=== PATIENT | male | born 1930 | race Hispanic/Latino ===

== ENCOUNTER 2017-07-12 11:13 | Emergency (ER) | payer MEDICARE ==
--- NOTE | 2017-07-12 12:04 | Emergency Department Report ---
Blank Doc - Documentation Documentation: Patient is a 87-year-old male history of congestive heart failure. Patient presented to the ER complaining of cough with whitish sputum for the last few weeks. Patient stated that he has been having runny nose also, he denied any fever nausea or vomiting. Patient denied any chest pain but admits shortness of breath. Possible CHF exacerbation versus pneumonia versus acute bronchitis. Chest x-ray, blood work ordered.
[2017-07-12 12:05] LABS: Basophils # (Auto) 0.1 K/mm3 (0.0-0.1); Basophils % (Auto) 0.6 % (0.0-1.8); Eosinophils # (Auto) 0.2 K/mm3 (0.0-0.4); Eosinophils % (Auto) 2.1 % (0.0-4.3); Hematocrit 37.7 % (35.5-45.6); Hemoglobin 12.4 gm/dl (11.8-15.2); Lymphocytes # (Auto) 3.4 K/mm3 (1.2-5.4); Lymphocytes % (Auto) 33.5 % (13.4-35.0); Mean Corpuscular HGB Conc 33 % (32-34); Mean Corpuscular Hemoglobin 29 pg (28-32); Mean Corpuscular Volume 89 fl (84-94); Monocytes # (Auto) 0.8 K/mm3 (0.0-0.8); Monocytes % (Auto) 7.4 % (0.0-7.3); Platelet Count 209 K/mm3 (140-440); Red Blood Count 4.24 M/mm3 (3.65-5.03); Red Cell Distribution Width 14.4 % (13.2-15.2)
--- NOTE | 2017-07-12 13:41 | Emergency Department Report ---
ED General Adult HPI - General Chief complaint: Upper Respiratory Infection Stated complaint: FLU LIKE SYMPTOMS Time Seen by Provider: 07/12/17 11:53 Source: patient, family Mode of arrival: Ambulatory Limitations: No Limitations - History of Present Illness Initial comments: . Patient is a 87-year-old male history of congestive heart failure. Patient presented to the ER complaining of cough with whitish sputum for the last few weeks. Patient stated that he has been having runny nose also, he denied any fever nausea or vomiting. Patient denied any chest pain but admits shortness of breath. Pain is 0-10. He has a history of congestive heart failure, diabetes, CAD with open heart surgery. No medication taken. Patient says that [facility] for [facility] care and specialty visits. MD Complaint: cough 3 weeks Onset/Timin -: week(s) Severity scale (0 -10): 0 Improves with: none Worsens with: none Associated Symptoms: cough, weakness. denies: confusion, chest pain, diaphoresis, fever/chills, headaches, loss of appetite, malaise, nausea/vomiting , rash, seizure, shortness of breath, syncope Treatments Prior to Arrival: none - Related Data Previous Rx's Medication Instructions Recorded Last Taken Type ALBUTEROL Inhaler [ProAir HFA 2 puff IH QID PRN #1 inhalation 07/12/17 Unknown Rx Inhaler] Benzonatate [Tessalon Perle] 100 mg PO Q8H PRN #12 capsule 07/12/17 Unknown Rx Cetirizine HCl [ZyrTEC] 10 mg PO QDAY 1 Days #7 capsule 07/12/17 Unknown Rx Fluticasone [Flonase] 1 spray NS QDAY 14 Days #1 bottle 07/12/17 Unknown Rx Levofloxacin [Levaquin TAB] 500 mg PO QDAY 7 Days #7 tablet 07/12/17 Unknown Rx Allergies Allergy/AdvReac Type Severity Reaction Status Date / Time No Known Allergies Allergy Unverified 07/12/17 11:16 ED Review of Systems ROS: Stated complaint: FLU LIKE SYMPTOMS Other details as noted in HPI Constitutional: weakness. denies: chills, fever Eyes: denies: eye pain, eye discharge, vision change ENT: denies: ear pain, throat pain Respiratory: cough, wheezing. denies: orthopnea, shortness of breath, SOB with exertion, SOB at rest Cardiovascular: denies: chest pain, palpitations, edema, syncope Gastrointestinal: denies: abdominal pain, nausea, diarrhea Musculoskeletal: denies: back pain, joint swelling, arthralgia Skin: denies: rash, lesions Neurological: weakness. 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 - Medications Home Medications: Home Medications Medication Instructions Recorded Confirmed Last Taken Type ALBUTEROL Inhaler [ProAir HFA 2 puff IH QID PRN #1 inhalation 07/12/17 Unknown Rx Inhaler] Benzonatate [Tessalon Perle] 100 mg PO Q8H PRN #12 capsule 07/12/17 Unknown Rx Cetirizine HCl [ZyrTEC] 10 mg PO QDAY 1 Days #7 capsule 07/12/17 Unknown Rx Fluticasone [Flonase] 1 spray NS QDAY 14 Days #1 bottle 07/12/17 Unknown Rx Levofloxacin [Levaquin TAB] 500 mg PO QDAY 7 Days #7 tablet 07/12/17 Unknown Rx ED Physical Exam - General Limitations: No Limitations General appearance: alert, in no apparent distress - Head Head exam: Present: atraumatic, normal inspection - Eye Eye exam: Present: normal appearance, PERRL, EOMI Pupils: Present: normal accommodation - ENT ENT exam: Present: normal orophraynx, mucous membranes moist, normal external ear exam, other (O nasal mucosa congested with erythema and clear drainage). Absent: TM's normal bilaterally (bilateral TM congested without erythema) - Neck Neck exam: Present: normal inspection, full ROM. Absent: tenderness, lymphadenopathy - Respiratory Respiratory exam: Present: wheezes, rhonchi, other (congested cough). Absent: normal lung sounds bilaterally, respiratory distress, rales, stridor, chest wall tenderness, accessory muscle use, decreased breath sounds, prolonged expiratory - Cardiovascular Cardiovascular Exam: Present: regular rate, normal rhythm, normal heart sounds, other (paced rhythm) - GI/Abdominal GI/Abdominal exam: Present: soft, normal bowel sounds. Absent: tenderness - Extremities Exam Extremities exam: Present: normal inspection, full ROM, tenderness, normal capillary refill, other (no clubbing, cyanosis or edema. Positive pulses all extremities and no neurovascular compromise). Absent: pedal edema, joint swelling, calf tenderness - Back Exam Back exam: Present: normal inspection, full ROM, other (ambulates without any difficulties). Absent: tenderness, CVA tenderness (R), CVA tenderness (L), muscle spasm, paraspinal tenderness, vertebral tenderness, rash noted - Neurological Exam Neurological exam: Present: alert, oriented X3, normal gait - Psychiatric Psychiatric exam: Present: normal affect, normal mood - Skin Skin exam: Present: warm, dry, intact, normal color. Absent: rash ED Course Vital Signs 07/12/17 07/12/17 07/12/17 11:16 14:58 15:34 Temperature 97.8 F Pulse Rate 65 54 L 60 Respiratory 18 16 Rate Blood Pressure 120/63 135/61 Blood Pressure 113/57 [Right] O2 Sat by Pulse 98 98 98 Oximetry - Reevaluation(s) Reevaluation #1: 07/12/17 14:20 Patient started on DuoNeb treatments x 1 and Deltasone 60 mg po. Rocephin 1 g IM. Upon reevaluation, Patient feels better and lung souns better ED Medical Decision Making - Lab Data Result diagrams: 07/12/17 11:34 07/12/17 11:34 Lab Results 07/12/17 07/12/17 07/12/17 Range/Units 11:34 11:34 11:34 WBC 10.2 (4.5-11.0) K/mm3 RBC 4.24 (3.65-5.03) M/mm3 Hgb 12.4 (11.8-15.2) gm/dl Hct 37.7 (35.5-45.6) % MCV 89 (84-94) fl MCH 29 (28-32) pg MCHC 33 (32-34) % RDW 14.4 (13.2-15.2) % Plt Count 209 (140-440) K/mm3 Lymph % (Auto) 33.5 (13.4-35.0) % [place] % (Auto) 7.4 H (0.0-7.3) % Eos % (Auto) 2.1 (0.0-4.3) % Baso % (Auto) 0.6 (0.0-1.8) % Lymph # 3.4 (1.2-5.4) K/mm3 [place] # 0.8 (0.0-0.8) K/mm3 Eos # 0.2 (0.0-0.4) K/mm3 Baso # 0.1 (0.0-0.1) K/mm3 Seg Neutrophils % 56.4 (40.0-70.0) % Seg Neutrophils # 5.8 (1.8-7.7) K/mm3 Sodium 140 (137-145) mmol/L Potassium 4.5 (3.6-5.0) mmol/L Chloride 104.5 (98-107) mmol/L Carbon Dioxide 24 (22-30) mmol/L Anion Gap 16 mmol/L BUN 53 H (9-20) mg/dL Creatinine 2.0 H (0.8-1.5) mg/dL Estimated GFR 32 ml/min BUN/Creatinine Ratio 27 % Glucose 140 H (75-100) mg/dL Calcium 9.0 (8.4-10.2) mg/dL Troponin T < 0.010 (0.00-0.029) ng/mL NT-Pro-B Natriuret Pep 5483 H (0-900) pg/mL - EKG Data -: EKG Interpreted by Me (attending physician) EKG shows normal: sinus rhythm Rate: normal (ventricular paced rhythm at 70 bpm) - EKG Data Interpretation: no acute changes - Radiology Data Radiology results: report reviewed Chest x-ray revealed cardiomegaly, stable pacemaker in no acute cardiopulmonary findings. - Medical Decision Making ED Course 87 yo male here for cough and congestion over the past few weeks and concerned. he goes to [facility] for [facility] This patient was evaluated by myself and stable. Labs: CBC stable,CMP stable with mild elevation in BYN/CR, troponin stable, BNP elevated but stable, ekg, no acute findings,Chest Xray dictated by radiologist and reviewed by myself. Xray findings and laboratory findings communicated to patient and he voiced understanding. Clinical Impression: Upper respiratory infection with cough and congestion-better Bronchitis, acute- Better Chronic CHF (congestive heart failure)- managed by head machine feeder and stable Chronic renal failure- managed by nephrology and stable Patient better after deltasone 60 mg po and duoneb x 1 neb given. he said he felt better Prescription for Albuterol inhaler, Tessalon perles, zyrtec, flonase and levaquin given Patient educated on medications, Multiple f/u at [facility], Multiple diagnosis and he voiced understanding VSS Afeb Discharge home in stable condition with instructions to return to ED if symptoms worsens - Differential Diagnosis PNA, BRONCHITIS, CHF exac, URI Critical care attestation.: If time is entered above; I have spent that time in minutes in the direct care of this critically ill patient, excluding procedure time. ED Disposition Clinical Impression: Cough in adult patient, Upper respiratory infection with cough and congestion, Cardiomegaly Bronchitis, acute Qualifiers: Bronchitis organism: unspecified organism Qualified Code(s): J20.9 - Acute bronchitis, unspecified Chronic CHF (congestive heart failure) Qualifiers: Heart failure type: unspecified Qualified Code(s): I50.9 - Heart failure, unspecified Chronic renal failure Qualifiers: Chronic kidney disease stage: unspecified stage Qualified Code(s): N18.9 - Chronic kidney disease, unspecified Disposition: DC-01 TO HOME OR SELFCARE Is pt being admited?: No Does the pt Need Aspirin: No Condition: Stable Instructions: Heart Failure (ED), Chronic Kidney Disease (ED), Upper Respiratory Infection (ED), Acute Bronchitis (ED) Additional Instructions: Please follow up with your head machine feeder and primary care physician at the [facility]. Take medication as prescribed. If symptoms worsen, return to the emergency room follow-up with nephrology for chronic kidney disease Follow-up with head machine feeder chronic CHF and enlarged heart. Follow up with a primary care doctor at [facility] tomorrow. Prescriptions: ALBUTEROL Inhaler [ProAir HFA Inhaler] 2 puff IH QID PRN #1 inhalation PRN Reason: wheezing and cough Benzonatate [Tessalon Perle] 100 mg PO Q8H PRN #12 capsule PRN Reason: Cough Cetirizine HCl [ZyrTEC] 10 mg PO QDAY 1 Days #7 capsule Fluticasone [Flonase] 1 spray NS QDAY 14 Days #1 bottle Levofloxacin [Levaquin TAB] 500 mg PO QDAY 7 Days #7 tablet Referrals: [facility] [Outside] - 07/13/17 REGINE DIXON MD [Staff Physician] - 07/13/17 JERRY CARROLL MD [Staff Physician] - 2-3 Days PRIMARY CARE, [Primary Care Provider] - 07/13/17
[2017-07-12] MEDS ORDERED: DUONEB *Not for PRN Use IH ONE (13:44)
[2017-07-12] MEDS ORDERED: DELTASONE PO ONE (13:44)
[2017-07-12] MEDS ORDERED: XYLOCAINE 1% MPF 5 mL INFILTRATI ONE (13:48)
[2017-07-12] MEDS ORDERED: ROCEPHIN IM STA (13:48)
[2017-07-12 15:35] VITALS: BP 113/57
--- NOTE | 2017-07-13 12:50 | XRay Report ---
Chest 2 views: History: Shortness of breath. Findings: Cardiomegaly. Stable pacemaker. No consolidation, pneumothorax or pleural effusions. Impression: Cardiomegaly. No acute lung changes.
== END 2017-07-12 15:34 | disposition home or self-care (01) ==
LOC: ED 11:13
DX: J20.9 Acute bronchitis, unspecified (principal); I50.9 Heart failure, unspecified; N18.9 Chronic kidney disease, unspecified; J06.9 Acute upper respiratory infection, unspecified; I51.7 Cardiomegaly; I10 Essential (primary) hypertension
CPT/HCPCS: 36415; 71046; 80048; 83880; 84484; 85025; 93005; 93010; 96372; 99284; J0696; J7512